=== PATIENT | male | born 1940 | race Asian ===

== ENCOUNTER 2024-05-15 16:41 | Emergency (ER) | payer BC ==
[~2024-05-15] VITALS: Ht 157.5 cm; Wt 63.0 kg
[2024-05-15 16:51] VITALS: TEMP 36.6; O2SAT 97
[2024-05-15] MEDS ORDERED: ACET-2708 MT (21:00)
[2024-05-15 21:09] VITALS: BP 149/71; PULSE 86; RESP 16; O2SAT 98
== END 2024-05-15 21:10 | disposition home or self-care (01) ==
LOC: ER 16:41
DX: M79.605 Pain in left leg (principal); E78.00 Pure hypercholesterolemia, unspecified; I67.82 Cerebral ischemia; Z79.82 Long term (current) use of aspirin; V43.52XA Car driver injured in collision with other type car in traffic accident, initial encounter; Y93.89 Activity, other specified; Y92.410 Unspecified street and highway as the place of occurrence of the external cause; Y99.8 Other external cause status
CPT/HCPCS: 73560; 73590; 99284